=== PATIENT | male | born 1990 ===

== ENCOUNTER 2016-10-29 13:21 | Emergency (ER) | payer OTHER ==
[2016-10-29 13:25] VITALS: BMI 29.0
[2016-10-29 13:27] VITALS: BP 143/81; PULSE 84; RESP 18; TEMP 97.5; O2SAT 96
--- NOTE | 2016-10-29 13:55 | ED PDOC ---
Lower Extremity Pain/Injury Time Seen by Provider: 10/29/16 13:21 Chief Complaint (Nursing): Lower Extremity Problem/Injury Chief Complaint (Provider): Lower Extremity Problem/Injury History Per: Patient History/Exam Limitations: no limitations Onset/Duration Of Symptoms: Days Current Symptoms Are (Timing): Still Present Additional Complaint(s): 26 y/o male presents to the emergency department with a complaint of right ankle pain after ankle injury yesterday, 10/28/2016. Patient notes inversion/ rolling of ankle and was unable to bear weight on ankle. Patient has bee using crutches. Reports talking Ibuprofen 1 hour prior to arrival. Patient arrived for an evaluation of possible fracture. Denies any further medical complaints. Past Medical History Reviewed: Historical Data, Nursing Documentation, Vital Signs Vital Signs: Last Vital Signs Temp 97.5 F L 10/29/16 13:25 Pulse 84 10/29/16 13:25 Resp 18 10/29/16 13:25 BP 143/81 10/29/16 13:25 Pulse Ox 96 10/29/16 13:25 - Medical History PMH: No Chronic Diseases - Surgical History Surgical History: No Surg Hx - Family History Family History: States: Unknown Family Hx - Home Medications Home Medications: Ambulatory Orders Medication Instructions Recorded Naproxen 1 tab PO Q12 PRN #10 tab 10/29/16 - Allergies Allergies/Adverse Reactions: Allergies Allergy/AdvReac Type Severity Reaction Status Date / Time No Known Allergies Allergy Verified 10/29/16 13:37 Review of Systems ROS Statement: Except As Marked, All Systems Reviewed And Found Negative Musculoskeletal: Positive for: Foot Pain (Right ankle) Physical Exam - Reviewed Nursing Documentation Reviewed: Yes Vital Signs Reviewed: Yes - Physical Exam Appears: Positive for: Non-toxic, No Acute Distress Head Exam: Positive for: ATRAUMATIC, NORMAL INSPECTION, NORMOCEPHALIC Skin: Positive for: Normal Color, Warm, Dry Extremity: Positive for: Swelling (Moderate swelling noted to the lateral malleolus with tenderness to the posterior region. ). Negative for: Tenderness (Nontender foot and medial malleolus), Deformity Neurologic/Psych: Positive for: Alert, Oriented (x3) - ECG O2 Sat by Pulse Oximetry: 96 (RA) Pulse Ox Interpretation: Normal - Progress ED Course And Treament: ANKLE XRY: IMPRESSION: No evidence of acute displaced fracture nor dislocation. Mild tissue swelling overlying the lateral malleolus. If symptoms persist or occult fracture suspected clinically recommend followup radiographs 5-10 days as most fractures should become radiographically evident in this timeframe. Placed in air cast and given crutch instructions. Medical Decision Making Medical Decision Making: Time: 13:21 Initial impression: Right ankle injury r/o fracture Initial plan: --Ankle right x-ray Scribe Attestation: Documented by Radha Jacob, acting as a scribe for Alexis larson PA-C. Provider Scribe Attestation: All medical record entries made by the Scribe were at my direction and personally dictated by me. I have reviewed the chart and agree that the record accurately reflects my personal performance of the history, physical exam, medical decision making, and the department course for this patient. I have also personally directed, reviewed, and agree with the discharge instructions and disposition. Disposition - Clinical Impression Clinical Impression: Ankle injury - Patient ED Disposition Is Patient to be Admitted: No - Disposition Referrals: Podiatry Clinic [Outside] Disposition: Routine/Home Disposition Time: 14:53 Condition: FAIR Prescriptions: Naproxen 1 tab PO Q12 PRN #10 tab PRN Reason: Pain, Moderate (4-7) Instructions: Ankle Sprain (ED) Forms: [employer] (French), [facility] ED School/Work Excuse
--- NOTE | 2016-10-29 14:32 | RAD ---
PROCEDURE: Right ankle dated 10/29/2016 HISTORY: ankle injury COMPARISON: None FINDINGS: BONES: No definitive radiographic evidence of acute displaced fracture nor dislocation. The osseous structures intact. Talar dome intact. JOINTS: No significant osteoarthritis. Ankle mortise maintained. . SOFT TISSUES: There is mild soft tissue swelling overlying the lateral malleolus OTHER FINDINGS: None. IMPRESSION: No evidence of acute displaced fracture nor dislocation. Mild tissue swelling overlying the lateral malleolus. If symptoms persist or occult fracture suspected clinically recommend followup radiographs 5-10 days as most fractures should become radiographically evident in this timeframe.
== END 2016-10-29 15:21 | disposition home or self-care (01) ==
LOC: H.ER 13:21
DX: S99.911A Unspecified injury of right ankle, initial encounter (principal); X50.1XXA Overexertion from prolonged static or awkward postures, initial encounter